=== PATIENT | male | born 1960 | race Caucasian/White ===

== ENCOUNTER 2022-10-12 16:36 | Emergency (ER) | payer MEDICARE ==
[2022-10-12 17:01] VITALS: BP 175/93; O2SAT 96
--- NOTE | 2022-10-12 17:04 | ERPHSYRPT ---
- History of Present Illness Time Seen by Provider: 10/12/22 16:56 Source: patient Exam Limitations: clinical condition Physician History: Pt became confused during his dialysis this afternoon and they called 9--. Pt has no current neuro focal deficits, but is confused . No hx of trauma. No known injestions. normal neuro exam except for cognition. no focal deficits. chest clear. Ht reg without Murmur. abd soft nontender without peritoneal signs or masses. Timing/Duration: today Severity: moderate Associated Symptoms: denies symptoms Allergies/Adverse Reactions: No Known Drug Allergies Allergy (Unverified 10/12/22 16:38) - Review of Systems Constitutional: No Fever, No Chills Eyes: No Symptoms Ears, Nose, & Throat: No Symptoms Respiratory: No Cough, No Dyspnea Cardiac: No Chest Pain, No Edema, No Syncope Abdominal/Gastrointestinal: No Abdominal Pain, No Nausea, No Vomiting, No Diarrhea Genitourinary Symptoms: No Dysuria Musculoskeletal: No Back Pain, No Neck Pain Skin: No Rash Neurological: Other (confusion), No Dizziness, No Focal Weakness, No Sensory Changes Psychological: No Symptoms Endocrine: No Symptoms Hematologic/Lymphatic: No Symptoms Immunological/Allergic: No Symptoms All Other Systems: Reviewed and Negative - Past Medical History Pertinent Past Medical History: Yes - Nursing Vital Signs Nursing Vital Signs: Initial Vital Signs Temperature 96.9 F 10/12/22 16:40 Pulse Rate 85 10/12/22 16:40 Respiratory Rate 18 10/12/22 16:40 Blood Pressure 175/93 10/12/22 16:40 O2 Sat by Pulse Oximetry 96 10/12/22 16:40 Pain Scale Pain Intensity 0 - Physical Exam General Appearance: no apparent distress, alert Eye Exam: PERRL/EOMI, eyes nml inspection Ears, Nose, Throat Exam: normal ENT inspection, TMs normal, pharynx normal, moist mucous membranes Neck Exam: normal inspection, non-tender, supple, full range of motion Respiratory Exam: normal breath sounds, lungs clear, No respiratory distress Cardiovascular Exam: regular rate/rhythm, normal heart sounds, normal peripheral pulses Gastrointestinal/Abdomen Exam: soft, normal bowel sounds, No tenderness, No mass Rectal Exam: deferred Back Exam: normal inspection, normal range of motion, No CVA tenderness, No vertebral tenderness Extremity Exam: normal inspection, normal range of motion, pelvis stable Neurologic Exam: alert, oriented x 3, cooperative, normal mood/affect, nml cerebellar function, nml station & gait, sensation nml, No motor deficits Skin Exam: normal color, warm, dry, No rash Lymphatic Exam: No adenopathy SpO2 Interpretation: normal SpO2: 96 O2 Delivery: Room Air - Course Nursing assessment & vital signs reviewed: Yes Ordered Tests: Active Orders 24 hr Category Date Time Status EKG-ER Only STAT Care 10/12/22 17:43 Active IV Insertion STAT Care 10/12/22 17:43 Active CHEST 1 VIEW (PORTABLE) Stat Exams 10/12/22 17:44 Ordered HEAD WITHOUT CONTRAST [CT] Stat Exams 10/12/22 17:43 Ordered Lactic Acid Stat Lab 10/12/22 17:43 Ordered TROPONIN Q4H Lab 10/13/22 01:45 Ordered Medication Summary Generic Name Dose Route Start Last Admin Trade Name Freq PRN Reason Stop Dose Admin Sodium Chloride 1,000 mls @ 50 mls/hr 10/12/22 17:45 10/12/22 18:50 Sodium Chloride 0.9% 1000 Ml IV 11/11/22 17:44 Not Given .Q20H ATUL - Progress Progress: improved, re-examined Progress Note: 10/12/22 18:08 pt is now completely lucid- he is oriented x 3 and will submit to lab, but declines CT/EKG at this time and has the capacity at this time with current normal mental status to decline these. He has no hx trauma or LOC. NOrmal neuro still. I have advised him that we could miss some undetected pathology without these which could even result in or disability and he understands and has the capacity to make this choice. pt later declined to let lab attempt draw again after first miss. 10/12/22 19:30 awaiting daughter for further discussion and observing meantime - on re-exam still with normal mental status and neuro. Pt still does not wish testing or interventions, and has capacity to make this choice. offered meals, soft drinks, blanket - he accepted blanket. 10/12/22 20:09 Counseled pt/family regarding: lab results, diagnosis, need for follow-up, rad results - Departure Departure Disposition: AMA Clinical Impression: transient episode of confusion - resolve Condition: Good Critical Care Time: No Referrals: DOCTOR,NO FAMILY [Primary Care Provider] - Follow up/PCP as directed Instructions: Delirium (Confusion) (DC) Additional Instructions: follow-up your blood pressure with your Dr.s as well. We have not determined a cause for the symptoms that the EMS brought you here to evaluate. There could be a serious condition evolving or developing that we have not detected even though you seem fine right now. We understand that you have the right to decline any further evaluation or testing since your mind seems alert and mental status normal at this time. Please follow-up with your Drs. to consider further workup and continue in their care, and return or see a Dr. meantime if any symptoms occur. You are welcome back here any time you choose. follow-up your blood pressure with your Dr.s as well.
[2022-10-12] MEDS ORDERED: Sodium Chloride 0.9% 1000 ML 1,000 ML IV SCH (17:45)
[2022-10-12 18:49] VITALS: PULSE 81
== END 2022-10-12 20:27 | disposition left against medical advice (07) ==
LOC: ED 16:36
DX: R41.0 Disorientation, unspecified (principal)
CPT/HCPCS: 99282